=== PATIENT | female | born 1975 | race Caucasian/White ===

== ENCOUNTER → 2017-08-25 08:49 | Outpatient (CLI) | payer BC, SELFPAY ==
--- NOTE | 2017-08-25 09:10 | CT_ITS ---
CT abdomen pelvis w con CLINICAL INDICATION: ITS.REASON: PERINEAL LESION, CONSTIPATION, HX HERNIA REPAIR ORDERING PHYSICIAN: Michaela Salomon PATIENT AGE: 42 years COMPARISON: None TECHNIQUE: Axial images obtained with sagittal and coronal reformats. All CT scans at the facility use one or more dose reduction, viz: automated exposure control; ma/kV adjustment per patient size (including targeted exams where dose is matched to indication; i.e. head); or iterative reconstruction technique. PROCEDURE: Oral Contrast: Redicat IV Contrast: 75 mL's of Isovue-370. FINDINGS: No acute finding in the lung bases. The liver, spleen, adrenal glands, and pancreas are unremarkable. No renal mass, hydronephrosis, renal or ureteral calculi evident. No intestinal obstruction or free air. Unremarkable appendix. Bilateral tubal occlusion devices are present. There is engorgement of the left periuterine veins. No pelvic mass abnormal fluid collections or focal inflammatory change. No perirectal or perianal mass. No acute bony anomalies. IMPRESSION: 1. No acute abdominal pelvic findings. 2. Mild engorgement of the left parauterine veins of questionable clinical significance
== END ==
PROVIDERS: Family Provider Family Medicine; PCP Family Medicine; Visit Provider Colon & Rectal Surgery
DX: K62.9 Disease of anus and rectum, unspecified (principal); K59.01 Slow transit constipation
CPT/HCPCS: 74177; Q9967

== ENCOUNTER 2020-04-06 08:30 | Outpatient (RCR) | payer BC, SELFPAY ==
--- NOTE | 2020-02-10 10:15 | HMH.PTOPEV ---
PT Outpatient Evaluation Rehab PT Outpatient Evaluation Start: 02/10/20 08:06 Freq: Status: Active Protocol: Document 02/10/20 09:58 МАРИЯ (Rec: 02/10/20 10:15 PHOROMARI [id number]) Electronically Signed By Hans Aguilera, PT 02/10/20 09:58 Outpatient Therapy Subjective History Subjective History Pt is 44 yowf who presents with c/o pain in the L side of neck and post shld x ~4 mos with insidious onset of symptoms. She reports pain is worse with sitting and she has intermittent tingling and shooting throughout the L UE. She reports pain is decreased only with laying supine. She reports she had MRI which shows cervical disc pathology and bone spurs. Chief Complaint Pain,Stiff Symptom Type Sharp,Numbness,Tingling, Shooting Symptoms Relieved By Rest/Positioning Symptoms Aggravated By Sitting Prior Functional Limitations None Current Functional Limitations Sitting Symptom Description Intermittent,Activity Dependent Level of pain today (0-10) 3 Pain scale - at its worst (0-10) 8 Cervical Eval Palpation Cervical Muscles L Cervical Paraspinal,L Upper Trapezius Cervical/Thoracic Palpation Findings Tenderness Flexibility Deficits Upper Trapezius Muscle Length (R) Mild Tightness,(L) Mild Tightness Levaetor Scapulae Muscle Length (R) Mild Tightness,(L) Mild Tightness Passive Joint Mobility Cervical PIVM WNL: R OA L OA R AA L AA R C2/3 L C2/3 R C3/4 L C3/4 R C4/5 L C4/5 R C5/6 L C5/6 R C6/7 L C6/7 R C7/T1 L C7/T1 AROM Cervical Spine Extension Active Range of 0-45 Motion (degrees) Cervical Spine Flexion Active Range of 0-60 Motion (degrees) Cervical Spine Right Lateral Flexion 0-45 Active Ra
--- NOTE | 2020-03-23 09:19 | HMH.RHREAS ---
Rehab Reassessment Rehab OP Re-assessment Start: 03/23/20 09:15 Freq: Status: Active Protocol: Document 03/23/20 09:16 МАРИЯ (Rec: 03/23/20 09:19 МАРИЯ [id number]) Electronically Signed By Hans Aguilera, PT 03/23/20 09:16 Rehab Re-assessment Subjective Subjective Pt reports she feels much better overall and her HEP is helping to reduce her symptoms . Objective Objective Notes Cervical AROM (in deg): Flex= 0-60, Ext= 0-60, R SB= 0-50, L SB= 0-50, R ROT= 0-70, L ROT= 0-70 Assessment Progress Assessment Progressing as Expected Assessment Notes Pt has significantly less radicular symptoms and is tolerating HEP very well independently. She is currently in the process of getting home cervical traction unit as well. Patient goals met ST,2,3,4 Goals Not Met LT,2,3,4,5 Revised Goals none Plan Plan Continue per initial POC Frequency of Therapy 2 x/wk Duration of therapy 8 wks Time and Billing Re-Eval Time 15 Re-Eval Billing Units 1 PHYSICIAN CERTIFICATION: I certify the specified therapy services for Violet Franco are required, authorized, and reviewed every 30 days.
== END 2020-04-06 08:35 | disposition home or self-care (01) ==
LOC: PT 08:30
PROVIDERS: PCP Family Medicine; Visit Provider Nurse Practitioner
DX: M75.42 Impingement syndrome of left shoulder (principal)
CPT/HCPCS: 97010; 97012; 97014; 97035; 97110; 97163; 97164; G0283

== ENCOUNTER → 2020-09-05 10:41 | Outpatient (CLI) | payer BC, SELFPAY ==
--- NOTE | 2020-09-05 10:52 | MM_ITS ---
PROCEDURE: MM DIG SCREENING MAMM BI W/CAD Digital Breast Tomosynthesis Included CLINICAL INDICATION: Routine Screening Mammogram COMPARISON: [facility] DIG MAMM-SCREEN CHARLES from 11/24/2014 [facility] DIG MAMM-SCREEN CHARLES from 02/27/2016 TECHNIQUE: Standard CC and MLO images and 3D Tomosynthesis was obtained. R2 CAD reviewed. FINDINGS: Breast parenchyma is heterogeneously dense which may lower the sensitivity of mammography. Small focal asymmetry medial right breast is unchanged. No new dominant mass. No indirect evidence of malignancy or suspicious type microcalcifications. IMPRESSION: Benign bilateral digital screening mammograms. BI-RAD Category: 2 Benign Finding FOLLOW-UP: 1 YR 1 Year Follow-up (A letter has been sent to the patient regarding results of the study.) Dictated by: Mu Isaac MD 09/06/2020 18:12 Mu Isaac MD in [place] 09/06/2020 18:12
== END ==
PROVIDERS: PCP Family Medicine; Visit Provider Nurse Practitioner Obstetrics & Gynecology
DX: Z12.31 Encounter for screening mammogram for malignant neoplasm of breast (principal)
CPT/HCPCS: 77063; 77067

== ENCOUNTER → 2022-06-28 07:46 | Outpatient (CLI) | payer BC, OTHER, SELFPAY ==
--- NOTE | 2022-06-28 08:17 | CT_ITS ---
FINAL REPORT TECHNIQUE: After the administration of oral and intravenous contrast, axial images were obtained through the abdomen and pelvis by computed tomography. The study was performed with techniques to keep radiation dose as low as reasonably achievable, (ALARA). Individual dose reduction techniques using automated exposure control or adjustment of mA and/or kV according to the patient's size were employed. CLINICAL HISTORY: ABDOMINAL PAIN COMPARISON: 08/25/2017 FINDINGS: Abdomen: The lung bases are clear. The liver parenchyma is homogeneous. There is mild hepatosplenomegaly with the liver measuring 19 cm and the spleen measuring 14 cm. There is a small focus of enhancement in the inferior right lobe of the liver measuring 1.3 cm, best seen on image 48 series 2, probably due to small vascular malformation. The gallbladder is present. The pancreas, adrenals and kidneys appear unremarkable. The aorta is normal in caliber. There is no free fluid or adenopathy. There is prominence of colonic mucosa in the splenic flexure and proximal descending colon which may be related to incomplete distension of the colon. Mild colitis cannot be excluded. Pelvis: The appendix is unremarkable. The urinary bladder is unremarkable. The uterus is midline and is fibroid. There are bilateral adnexal cysts measuring up to 3 cm on the right. There is no free fluid or adenopathy. IMPRESSION: Fibroid uterus. Mild hepatosplenomegaly. Question colitis proximal descending colon. Reviewed, Interpreted and Dictated by Silvano Ware MD Transcribed by Annetta Almanza Authenticated and [facility]
== END ==
PROVIDERS: PCP Emergency Medicine; Visit Provider Emergency Medicine
DX: R10.9 Unspecified abdominal pain (principal)
CPT/HCPCS: 74177; Q9967